=== PATIENT | female | born 1980 | race Caucasian/White ===

== ENCOUNTER 2016-08-12 14:39 | Emergency (ER) | payer MEDICARE, SELFPAY ==
[~2016-08-12 14:39] MED LIST: ENTOCORT EC3 MG PO; LYRICA150 MG PO; METRONIDAZOLE500 MG PO
== END 2016-08-12 17:10 | disposition home or self-care (01) ==
LOC: ER 14:39
DX: R10.9 Unspecified abdominal pain (principal); R11.2 Nausea with vomiting, unspecified; R19.7 Diarrhea, unspecified; M06.9 Rheumatoid arthritis, unspecified; K50.90 Crohn's disease, unspecified, without complications; F17.210 Nicotine dependence, cigarettes, uncomplicated; Z79.899 Other long term (current) drug therapy; Z88.5 Allergy status to narcotic agent
CPT/HCPCS: 36415; 80307; 96361; 96374; 96375; 96376; J1100; J2550

== ENCOUNTER 2016-09-04 13:59 | Emergency (ER) | payer MEDICARE, SELFPAY | END 2016-09-04 16:54 | disposition home or self-care (01) | LOC: ER 13:59 | DX: M54.16 Radiculopathy, lumbar region (principal); F17.210 Nicotine dependence, cigarettes, uncomplicated; Z79.899 Other long term (current) drug therapy; Z88.5 Allergy status to narcotic agent; X50.0XXA Overexertion from strenuous movement or load, initial encounter | CPT/HCPCS: 96372; J1100; J2550; Q9967 ==

== ENCOUNTER 2016-10-09 23:29 | Emergency (ER) | payer MEDICARE, SELFPAY | END 2016-10-10 03:25 | disposition home or self-care (01) | LOC: ER 23:29 | DX: R11.2 Nausea with vomiting, unspecified (principal); B96.89 Other specified bacterial agents as the cause of diseases classified elsewhere; R50.9 Fever, unspecified; K50.90 Crohn's disease, unspecified, without complications; F17.210 Nicotine dependence, cigarettes, uncomplicated; Z79.899 Other long term (current) drug therapy; Z88.5 Allergy status to narcotic agent | CPT/HCPCS: 36415; 96361; 96374; 96375; 96376; J2550 ==